=== PATIENT | female | born 1990 | race Caucasian/White ===

== ENCOUNTER 2020-12-01 15:53 | Outpatient (CLI) | payer OTHER ==
[2020-12-02 00:50] LABS: SARS-CoV-2 PCR by NAA Not Detected (NotDetected)
== END 2020-12-01 15:54 | disposition home or self-care (01) ==
LOC: CSHLAB 15:53
PROVIDERS: ATTEND Obstetrics & Gynecology
DX: Z01.812 Encounter for preprocedural laboratory examination (principal); Z20.822 Contact with and (suspected) exposure to COVID-19
CPT/HCPCS: U0003; U0005

== ENCOUNTER 2020-12-06 10:11 | Inpatient (IN) | payer OTHER ==
[~2020-12-06 10:11] MED LIST: Bicitra 30 ML UDCUP PO PRN; Famotidine/PF 20 mg/2ml Vial SLOW IVP PRN; Ondansetron PF 4 MG/2 ML Vial IVP PRN; Promethazine HCl 25 MG/ML VIAL IM PRN; hydrALAZINE 20 MG/ML VIAL SLOW IVP PRN
[2020-12-06] MEDS ORDERED: Lactated Ringer's 1,000 ML IV SCH (11:00)
[2020-12-06] MEDS ORDERED: CEFAZOLIN 2 GM in Premix Bag 1 BAG IVPB SCH (11:00)
[2020-12-06 11:03] LABS: Hemoglobin 11.7 g/dL (12.0-15.5); Mean Corpuscular HGB CONC 33.2 g/dL (32.0-36.0); Mean Corpuscular Hemoglobin 28.7 pg (27.0-33.0); Mean Corpuscular Volume 86.3 fl (81.6-98.3); Platelet Count 208 10x3/uL (150-450); Red Blood Cell (RBC) Count 4.08 10x6/uL (3.90-5.03); White Blood Cell (WBC) Count 11.2 10x3/uL (3.5-10.5)
[2020-12-06 11:28] LABS: Hep B Surf Ag Non-Reactive S/CO (NonReactive)
[2020-12-06 11:29] LABS: Syphilis Antibody Nonreactive (Nonreactive); Syphilis Antibody Index 0.05 S/CO (<1.00 Non-Reactive)
[2020-12-06 11:31] LABS: HBSAg Index 0.22 S/CO (0-0.99)
[2020-12-06 11:52] VITALS: BMI 37.6
[2020-12-06] MEDS ORDERED: Ondansetron PF 4 MG/2 ML Vial ONE (11:55)
[2020-12-06] MEDS ORDERED: Metoclopramide HCl 10 MG/2 ML VIAL ONE (11:55)
[2020-12-06] MEDS ORDERED: Oxytocin 10 UNITS/ML VIAL ONE (11:56)
[2020-12-06] MEDS ORDERED: Phenylephrine 10 MG/ML VIAL ONE (11:56)
[2020-12-06] MEDS ORDERED: Morphine PF 10 MG/10 ML VIAL ONE (12:04)
[2020-12-06] MEDS ORDERED: Ketorolac Tromethamine 30 MG/ML VIAL ONE (12:51)
[2020-12-06] MEDS ORDERED: Naloxone HCl 0.4 mg/ml Vial IVP PRN ×2 (13:42)
[2020-12-06] MEDS ORDERED: Promethazine HCl 25 MG SUPP PR PRN (13:42)
[2020-12-06] MEDS ORDERED: Ondansetron HCl/PF 4 MG/2 ML Vial IVP PRN (13:42)
[2020-12-06] MEDS ORDERED: Hydrocerin (Eucerin) Cream 120 gm Jar TOP PRN (13:42)
[2020-12-06] MEDS ORDERED: Meperidine HCl/PF 25 MG/ML VIAL SLOW IVP PRN (13:42)
[2020-12-06] MEDS ORDERED: diphenhydrAMINE 50 MG/ML VIAL IVP PRN (13:42)
[2020-12-06] MEDS ORDERED: Fentanyl 100 MCG/2 ML VIAL SLOW IVP PRN (13:42)
[2020-12-06] MEDS ORDERED: Ondansetron PF 4 MG/2 ML Vial IVP PRN (13:42)
[2020-12-06] MEDS ORDERED: Naloxone HCl 0.4 mg/ml Vial IV PRN (13:42)
[2020-12-06] MEDS ORDERED: Promethazine HCl 25 MG/ML VIAL IM PRN (13:42)
[2020-12-06] MEDS ORDERED: Communication Order-Pharmacy FS SCH (13:45)
[2020-12-06] MEDS ORDERED: Lanolin Ointment 7 GM TUBE TOP PRN (15:07)
[2020-12-06] MEDS ORDERED: Acetaminophen 325 MG TAB PO PRN (15:07)
[2020-12-06] MEDS ORDERED: Bisacodyl 10 MG SUPP PR PRN (15:07)
[2020-12-06] MEDS ORDERED: hydrALAZINE 20 MG/ML VIAL SLOW IVP PRN (15:07)
[2020-12-06] MEDS ORDERED: Simethicone Chewable 80 MG TAB PO PRN (15:07)
[2020-12-06] MEDS ORDERED: Misoprostol 200 MCG TAB PR PRN (15:07)
[2020-12-06] MEDS: Ketorolac Tromethamine 30 MG/ML VIAL IVP PRN (18:51)
[2020-12-06] MEDS: Docusate Calcium (SURFAK) 240 MG CAP PO SCH (20:33)
[2020-12-07] MEDS ORDERED: HYDROcodone/Acetaminophen 5/325 mg Tablet PO PRN (01:45)
[2020-12-07] MEDS: Ketorolac Tromethamine 30 MG/ML VIAL IVP PRN (03:20)
[2020-12-07 04:29] LABS: Hemoglobin 9.9 g/dL (12.0-15.5); Mean Corpuscular HGB CONC 33.3 g/dL (32.0-36.0); Mean Corpuscular Volume 87.1 fl (81.6-98.3); Mean Platelet Volume 9.9 fl (7.4-10.4); Platelet Count 167 10x3/uL (150-450); RBC Distribution Width 14.1 % (11.5-14.5); Red Blood Cell (RBC) Count 3.41 10x6/uL (3.90-5.03); White Blood Cell (WBC) Count 11.3 10x3/uL (3.5-10.5)
[2020-12-07] MEDS: HYDROcodone/Acetaminophen 5/325 mg Tablet PO PRN ×4 (06:25→22:50)
[2020-12-07] MEDS: Docusate Calcium (SURFAK) 240 MG CAP PO SCH ×2 (08:20→21:04)
[2020-12-07] MEDS: Prenatal Vitamin 1 TAB PO SCH (08:20)
[2020-12-07] MEDS: Ibuprofen 800 MG TAB PO SCH ×2 (14:01→21:04)
[2020-12-07] MEDS ORDERED: Boostrix 0.5 ML (Tdap) VIAL IM ONE (15:07)
[2020-12-08] MEDS: Ibuprofen 800 MG TAB PO SCH ×3 (05:25→21:53)
[2020-12-08] MEDS: HYDROcodone/Acetaminophen 5/325 mg Tablet PO PRN ×3 (05:25→19:18)
[2020-12-08] MEDS: Prenatal Vitamin 1 TAB PO SCH (08:57)
[2020-12-08] MEDS: Docusate Calcium (SURFAK) 240 MG CAP PO SCH ×2 (08:57→21:54)
[2020-12-08] MEDS: HYDROcodone/Acetaminophen 5/325 mg Tablet PO SCH ×3 (09:40→21:53)
[2020-12-09] MEDS: HYDROcodone/Acetaminophen 5/325 mg Tablet PO SCH ×3 (04:00→13:35)
[2020-12-09] MEDS: Ibuprofen 800 MG TAB PO SCH ×2 (06:00→13:09)
[2020-12-09] MEDS: Prenatal Vitamin 1 TAB PO SCH (08:07)
[2020-12-09] MEDS: HYDROcodone/Acetaminophen 5/325 mg Tablet PO PRN ×2 (08:07→13:08)
[2020-12-09] MEDS: Docusate Calcium (SURFAK) 240 MG CAP PO SCH (08:08)
[2020-12-09 12:05] VITALS: BP 116/56; TEMP 97.6
== END 2020-12-09 14:45 | disposition home or self-care (01) | DRG 784 ==
LOC: CSHLD 10:11 → CSHPP 15:40
PROVIDERS: ADMIT Obstetrics & Gynecology; ATTEND Obstetrics & Gynecology
PROC: 10D00Z1 Extraction of Products of Conception, Low, Open Approach (ICD-10-PCS; principal; 2020-12-06)
PROC: 0UB70ZZ Excision of Bilateral Fallopian Tubes, Open Approach (ICD-10-PCS; 2020-12-06)
DX: O34.211 Maternal care for low transverse scar from previous cesarean delivery (principal); D62 Acute posthemorrhagic anemia; O90.81 Anemia of the puerperium; Z37.0 Single live birth; Z3A.39 39 weeks gestation of pregnancy
CPT/HCPCS: 36415; 51702; 85027; 85461; 86780; 86850; 86870; 86900; 86901; 87340; 88302; 90384; 96372; J0690; J1200; J1885; J2274; J2370; J2405; J2590; J2765; J7120; S0028